=== PATIENT | male | born 1970 | race African-American/Black ===

== ENCOUNTER 2025-02-03 18:07 | Inpatient (IN) | payer OTHER ==
[2025-02-03 16:27] VITALS: BMI 29.2
[~2025-02-03 18:07] MED LIST: ACETAMINOPHEN 325 MG TABLET (FP) PO PRN; BENZOCAINE/MENTHOL (CHLORASEPTIC ) LOZENGE MM PRN; BENZONATATE 200 MG CAPSULE PO PRN; BISMUTH SUBSALICYLATE 524 MG/30 ML PO PRN; DICYCLOMINE HCL 10 MG CAPSULE PO PRN; IBUPROFEN 400 MG TABLET (FP) PO PRN; IBUPROFEN 600 MG TABLET (FP) PO PRN; LOPERAMIDE HCL 2 MG CAPSULE PO PRN; MAG HYDROX/AL HYDROX/SIMETH 30 ML UNIT-DOSE CUP PO PRN; MAGNESIUM HYDROX 2400MG/30ML ORAL SUSPENSION 30 ML CUP PO PRN; METHOCARBAMOL 500 MG TABLET PO PRN; NALOXONE (NARCAN) HCL 4 MG/0.1 ML SPRAY NS PRN; ONDANSETRON *ODT* 4 MG TABLET SL PRN; POLYETHYLENE GLYCOL (HEALTHYLAX) 3350 17 GM PACKET PO PRN; guaiFENesin 600 MG TABLET.ER (FP) PO PRN; hydrOXYzine PAMOATE 25 MG CAPSULE (FP) PO PRN
[2025-02-03] MEDS: MELATONIN 5 MG TABLETS PO SCH (23:18)
[2025-02-03] MEDS: THIAMINE 100 MG TABLET PO SCH (23:18)
[2025-02-04 09:25] VITALS: BP 131/75; PULSE 76; RESP 16; TEMP 98.1
[2025-02-04] MEDS: PRENATAL VITAMINS W/ FOLIC ACID TABLET (FP) PO SCH (10:38)
[2025-02-04 11:17] LABS: CHLORIDE 107 mmol/L (98-107); HEMATOCRIT 41.6 % (40.1-51.0); HEMOGLOBIN 13.1 g/dL (13.7-17.5); MCHC 31.5 g/dl (32.3-36.5); MEAN CELL VOLUME 86.1 fl (79.0-92.2); MEAN PLT VOLUME 10.1 fl (9.4-12.4); PLATELET COUNT 335 x10^3/uL (163-337); POTASSIUM 4.3 mmol/L (3.5-5.1); SODIUM 139 mmol/L (136-145)
[2025-02-04 11:34] LABS: ALBUMIN 3.4 g/dl (3.4-5.0); ANION GAP 8 mmol/L (4-13); CALCIUM 9.1 mg/dL (8.5-10.1); CO2 25 mmol/L (21-32); GLUCOSE,RANDOM 111 mg/dL (74-106)
[2025-02-04 11:36] LABS: SGOT/AST 34 U/L (15-37); SGPT/ALT 40 U/L (13-61)
[2025-02-04 11:37] LABS: BILIRUBIN,TOTAL 0.4 mg/dL (0.2-1); CREATININE 0.8 mg/dL (0.55-1.3); TOT PROT 6.7 g/dl (6.4-8.2)
[2025-02-04 11:38] LABS: ALK PHOS 93 U/L (45-117)
== END 2025-02-04 11:08 | disposition left against medical advice (07) | DRG 770 ==
LOC: YASAS 18:07 → Y3N 20:50
PROVIDERS: ADMIT Allergy & Immunology; ATTEND Allergy & Immunology
PROC: HZ2ZZZZ Detoxification Services for Substance Abuse Treatment (ICD-10-PCS; principal; 2025-02-03)
DX: F10.20 Alcohol dependence, uncomplicated (principal); F11.10 Opioid abuse, uncomplicated; F17.210 Nicotine dependence, cigarettes, uncomplicated; Z87.01 Personal history of pneumonia (recurrent); Z87.09 Personal history of other diseases of the respiratory system; Z59.00 Homelessness unspecified
CPT/HCPCS: 36415; 80053; 80305; 80307; 85027; 86780; 93005; 93010

== ENCOUNTER 2025-02-27 14:07 | Inpatient (IN) | payer OTHER ==
[2025-02-27 14:55] VITALS: BMI 27.8
[2025-02-27] MEDS ORDERED: IBUPROFEN 600 MG TABLET (FP) PO PRN (15:24)
[2025-02-27] MEDS ORDERED: ACETAMINOPHEN 325 MG TABLET (FP) PO PRN (15:24)
[2025-02-27] MEDS ORDERED: MAGNESIUM HYDROX 2400MG/30ML ORAL SUSPENSION 30 ML CUP PO PRN (15:24)
[2025-02-27] MEDS ORDERED: BENZOCAINE/MENTHOL (CHLORASEPTIC ) LOZENGE MM PRN (15:24)
[2025-02-27] MEDS ORDERED: IBUPROFEN 400 MG TABLET (FP) PO PRN (15:24)
[2025-02-27] MEDS ORDERED: BENZONATATE 200 MG CAPSULE PO PRN (15:24)
[2025-02-27] MEDS ORDERED: diazePAM 5 MG TABLET PO PRN (15:24)
[2025-02-27] MEDS ORDERED: NALOXONE (NARCAN) HCL 4 MG/0.1 ML SPRAY NS PRN (15:24)
[2025-02-27] MEDS ORDERED: DICYCLOMINE HCL 10 MG CAPSULE PO PRN (15:24)
[2025-02-27] MEDS ORDERED: POLYETHYLENE GLYCOL (HEALTHYLAX) 3350 17 GM PACKET PO PRN (15:24)
[2025-02-27] MEDS ORDERED: LOPERAMIDE HCL 2 MG CAPSULE PO PRN (15:24)
[2025-02-27] MEDS ORDERED: QUEtiapine FUMARATE 100 MG TABLET (FP) PO PRN (15:24)
[2025-02-27] MEDS ORDERED: BISMUTH SUBSALICYLATE 524 MG/30 ML PO PRN (15:24)
[2025-02-27] MEDS ORDERED: MAG HYDROX/AL HYDROX/SIMETH 30 ML UNIT-DOSE CUP PO PRN (15:24)
[2025-02-27] MEDS ORDERED: guaiFENesin 600 MG TABLET.ER (FP) PO PRN (15:24)
[2025-02-27] MEDS ORDERED: diazePAM 5 MG TABLET ONE (17:44)
[2025-02-27] MEDS ORDERED: methaDONE HCL 10 MG TABLET (FOR DETOX USE ONLY) ONE (17:45)
[2025-02-27] MEDS: methaDONE HCL 10 MG TABLET (FOR DETOX USE ONLY) PO ONE (17:50)
[2025-02-27] MEDS: NICOTINE 14 MG/24 HOURS TOPICAL PATCH TD SCH (17:53)
[2025-02-27] MEDS: diazePAM 5 MG TABLET PO SCH (17:53)
[2025-02-27] MEDS: cloNIDine HCL 0.1 MG TABLET PO SCH (18:41)
[2025-02-27] MEDS: BUPRENORPHINE/NALOXONE 0.5 MG/0.125 MG FILM SL ONE (22:32)
[2025-02-27] MEDS: THIAMINE 100 MG TABLET PO SCH (22:32)
[2025-02-27] MEDS: MELATONIN 5 MG TABLETS PO SCH (22:32)
[2025-02-28] MEDS: PRENATAL VITAMINS W/ FOLIC ACID TABLET (FP) PO SCH (09:42)
[2025-02-28] MEDS: BUPRENORPHINE/NALOXONE 0.5 MG/0.125 MG FILM SL SCH (09:43)
[2025-02-28 11:36] LABS: HEMATOCRIT 38.6 % (40.1-51.0); MCHC 31.1 g/dl (32.3-36.5); MEAN PLT VOLUME 9.8 fl (9.4-12.4); PLATELET COUNT 390 x10^3/uL (163-337); RDW 15.5 % (12.2-16.1)
[2025-02-28 11:40] LABS: CHLORIDE 103 mmol/L (98-107); POTASSIUM 4.1 mmol/L (3.5-5.1); SODIUM 138 mmol/L (136-145)
[2025-02-28 11:45] LABS: CALCIUM 9.3 mg/dL (8.5-10.1)
[2025-02-28 11:46] LABS: ANION GAP 9 mmol/L (4-13); BLOOD UREA NITROGEN 13.2 mg/dL (7-18); CO2 26 mmol/L (21-32)
[2025-02-28 11:47] LABS: ALBUMIN 3.3 g/dl (3.4-5.0); GLUCOSE,RANDOM 125 mg/dL (74-106)
[2025-02-28 11:48] LABS: CREATININE 0.8 mg/dL (0.55-1.3); SGOT/AST 25 U/L (15-37); SGPT/ALT 37 U/L (13-61)
[2025-02-28 11:51] LABS: ALK PHOS 112 U/L (45-117); BILIRUBIN,TOTAL 0.2 mg/dL (0.2-1)
[2025-02-28 12:40] LABS: HCV DIAGNOSTIC IN-HOUSE W/RFLX NON-REACTIVE (NONREACTIVE)
[2025-02-28 12:41] LABS: HIV INTERPRETATION NEGATIVE (NEGATIVE)
[2025-02-28] MEDS: diazePAM 5 MG TABLET PO SCH (17:26)
[2025-02-28] MEDS: NICOTINE POLACRILEX 2 MG GUM BUC PRN (18:30)
[2025-03-01] MEDS: diazePAM 5 MG TABLET PO PRN (04:25)
[2025-03-01] MEDS: diazePAM 5 MG TABLET PO SCH (05:10)
[2025-03-01] MEDS ORDERED: diazePAM 5 MG TABLET PO SCH (06:00)
[2025-03-01] MEDS: methaDONE HCL 10 MG TABLET (FOR DETOX USE ONLY) PO ONE (10:18)
[2025-03-01] MEDS: BUPRENORPHINE/NALOXONE 2 MG/0.5 MG FILM PACKET SL SCH (10:18)
[2025-03-01] MEDS: METHOCARBAMOL 500 MG TABLET PO PRN (22:38)
[2025-03-02] MEDS: ONDANSETRON *ODT* 4 MG TABLET SL PRN (04:23)
[2025-03-02] MEDS: diazePAM 5 MG TABLET PO SCH (05:48)
[2025-03-02] MEDS ORDERED: diazePAM 5 MG TABLET PO SCH (06:00)
[2025-03-02] MEDS: BUPRENORPHINE/NALOXONE 4 MG/1 MG FILM PACKET SL SCH (09:22)
[2025-03-03] MEDS: hydrOXYzine PAMOATE 25 MG CAPSULE (FP) PO PRN (03:28)
[2025-03-03] MEDS ORDERED: diazePAM 5 MG TABLET PO ONE ×2 (06:00)
[2025-03-03 09:17] VITALS: BP 143/68; PULSE 78; RESP 18; TEMP 98.4
[2025-03-03] MEDS: methaDONE HCL 10 MG TABLET (FOR DETOX USE ONLY) PO ONE (09:38)
[2025-03-03] MEDS: BUPRENORPHINE/NALOXONE 8 MG/2 MG FILM PACKET SL SCH (09:39)
[2025-03-04] MEDS ORDERED: BUPRENORPHINE/NALOXONE 8 MG/2 MG FILM PACKET SL SCH (10:00)
== END 2025-03-03 09:45 | disposition home or self-care (01) | DRG 773 ==
LOC: YASAS 14:07 → Y6N 17:16
PROVIDERS: ADMIT Allergy & Immunology; ATTEND Allergy & Immunology
PROC: HZ2ZZZZ Detoxification Services for Substance Abuse Treatment (ICD-10-PCS; principal; 2025-02-27)
DX: F11.23 Opioid dependence with withdrawal (principal); F10.230 Alcohol dependence with withdrawal, uncomplicated; F14.20 Cocaine dependence, uncomplicated; F17.210 Nicotine dependence, cigarettes, uncomplicated; F43.10 Post-traumatic stress disorder, unspecified; Z87.01 Personal history of pneumonia (recurrent); Z59.00 Homelessness unspecified
CPT/HCPCS: 36415; 71045-TC-FY; 80053; 80305; 80307; 85027; 86780; 86803; 87389; Q0162